=== PATIENT | female | born 1980 | race African-American/Black ===

== ENCOUNTER 2022-05-07 06:19 | Observation (INO) ==
[2022-05-05 12:00] LABS: Basophils # 0.1 10*3/uL (0.0-0.2); Basophils % 0.9 % (0.0-0.8); Eosinophils # 0.1 10*3/uL (0.0-0.87); Eosinophils % 1.6 % (0.00-10.9); Hematocrit 37.2 VOL% (35.7-47.0); Hemoglobin 12.2 GM/DL (12.0-16.0); Immature Granulocytes % 0.4 %; Immature Granulocytes Absolute 0.03 #; Lymphocytes % 28.8 % (21.3-54.2); Mean Corpuscular HGB Conc 32.8 GM/DL (32-36); Mean Corpuscular Volume 91.9 FL (87-102); Monocytes # 0.8 10*3/uL (0.11-0.8); Monocytes % 11.3 % (1.7-12.7); Platelet Count 268 T/CUMM (130-400); Red Blood Count 4.05 MC/CUMM (3.8-5.5); White Blood Count 6.8 T/CUMM (4-12)
[2022-05-05 12:44] LABS: Calcium 11.2 MG/DL (8.5-10.1); Osmolality,Calculated 272.8 MOS/KG (273-304); Potassium 3.8 MMOL/L (3.5-5.1)
[2022-05-07] MEDS: LACTATED RINGERS 1,000 ML IV SCH (07:16)
[2022-05-07] MEDS ORDERED: ACETAMINOPHEN 500 MG TABLET PO ONE (07:32)
[2022-05-07] MEDS ORDERED: DIAZEPAM 5 MG TABLET PO ONE (07:32)
[2022-05-07] MEDS ORDERED: GABAPENTIN 400 MG CAPSULE PO ONE (07:32)
[2022-05-07] MEDS ORDERED: FAMOTIDINE 20 MG TABLET PO ONE (07:32)
[2022-05-07] MEDS ORDERED: TISSUE ADHESIVE 1 EACH APPLICATOR TOP ONE (10:29)
[2022-05-07] MEDS ORDERED: LIDOCAINE 2% 5 ML VIAL ONE ×2 (10:29→11:10)
[2022-05-07] MEDS ORDERED: BUPIVACAINE MPF 0.25% 10 ML VIAL ONE (10:29)
[2022-05-07] MEDS ORDERED: fentaNYL 100 MCG/2 ML VIAL ONE ×3 (10:36→12:22)
[2022-05-07] MEDS ORDERED: MIDAZOLAM 2 MG/2 ML VIAL ONE (10:36)
[2022-05-07] MEDS ORDERED: ROCURONIUM 50 MG/5 ML VIAL IV ONE (11:10)
[2022-05-07] MEDS ORDERED: ONDANSETRON 4 MG/2 ML VIAL ONE (11:10)
[2022-05-07] MEDS ORDERED: SUCCINYLCHOLINE 200 MG/10 ML VIAL ONE (11:10)
[2022-05-07] MEDS ORDERED: SEVOFLURANE 1 UNIT/15 MINUTE INH ONE ×5 (11:10→13:23)
[2022-05-07] MEDS ORDERED: MINERAL OIL/PETROLATUM OPH OINT 3.5 GM TUBE ONE (11:10)
[2022-05-07] MEDS ORDERED: propofoL 200 MG/20 ML VIAL IV ONE ×2 (11:10→13:23)
[2022-05-07] MEDS ORDERED: LACTATED RINGERS 1,000 ML IV ONE (11:13)
[2022-05-07] MEDS ORDERED: ONDANSETRON 4 MG/2 ML VIAL IV PRN ×2 (13:22→14:35)
[2022-05-07] MEDS ORDERED: HYDROmorphone 1 MG/1 ML SYRINGE ONE (14:34)
[2022-05-07] MEDS ORDERED: HYDROmorphone 1 MG/1 ML SYRINGE IV PRN (14:35)
[2022-05-07] MEDS: MORPHINE 2 MG/1 ML SYRINGE IV PRN ×2 (18:05→23:15)
[2022-05-08 05:23] LABS: Calcium 8.3 MG/DL (8.5-10.1); Osmolality,Calculated 274.5 MOS/KG (273-304); Potassium 3.5 MMOL/L (3.5-5.1)
[2022-05-08] MEDS: VALSARTAN 160 MG TABLET PO SCH (09:58)
[2022-05-08] MEDS: CALCIUM (CARBONATE)/VITAMIN D 600 MG-400 UNIT TABLET PO SCH ×2 (09:59→16:31)
[2022-05-08] MEDS: hydroCHLOROthiazide 25 MG TABLET PO SCH (09:59)
[2022-05-08] MEDS: POTASSIUM CHLORIDE 20 MEQ TABLET PO SCH (09:59)
[2022-05-08] MEDS: amLODIPine 10 MG TABLET PO SCH (09:59)
[2022-05-08] MEDS: ATORVASTATIN 20 MG TABLET PO SCH (09:59)
[2022-05-09 07:41] VITALS: BP 101/54
[2022-05-09] MEDS: hydroCHLOROthiazide 25 MG TABLET PO SCH (09:41)
[2022-05-09] MEDS: VALSARTAN 160 MG TABLET PO SCH (09:41)
[2022-05-09] MEDS: amLODIPine 10 MG TABLET PO SCH (09:41)
[2022-05-09] MEDS: ATORVASTATIN 20 MG TABLET PO SCH (09:42)
[2022-05-09] MEDS: POTASSIUM CHLORIDE 20 MEQ TABLET PO SCH (09:42)
[2022-05-09] MEDS: CALCIUM (CARBONATE)/VITAMIN D 600 MG-400 UNIT TABLET PO SCH (09:42)
[2022-05-09] MEDS: LACTATED RINGERS 1,000 ML IV SCH ×2 (11:57→11:58)
== END 2022-05-09 11:37 | disposition home or self-care (01) ==
LOC: N.OR 06:19 → N.SDSINP 06:19 → N.3E 06:19 → N.SDSINP 06:25 → N.3E 14:47
PROVIDERS: ADMIT Surgery; ATTEND Surgery